=== PATIENT | male | born 1995 | race Caucasian/White ===

== ENCOUNTER 2019-03-27 16:41 | Emergency (ER) | payer OTHER ==
[2019-03-27 16:50] VITALS: BP 125/64; PULSE 76; TEMP 98.3; BMI 23.0
--- NOTE | 2019-03-27 17:23 | PDOC ---
History of Present Illness - General Chief Complaint: Laceration Stated Complaint: LACERATION Time Seen by Provider: 03/27/19 16:55 - History of Present Illness Initial Comments: 03/27/19 17:21 23-year-old male without comorbidities presents for evaluation of a laceration on his chin which occurred last night while at a club 03/27/19 17:21 There was no loss of consciousness post injury nausea vomiting or visual changes. Patient is here for a wound check 03/27/19 17:23 Tetanus shot is up-to-date Past History - Past Medical History Allergies/Adverse Reactions: Allergies Allergy/AdvReac Type Severity Reaction Status Date / Time No Known Allergies Allergy Verified 03/27/19 16:50 Home Medications: Ambulatory Orders NK [No Known Home Medication] 03/27/19 - Psycho Social/Smoking Cessation Hx Smoking History: Never smoked Have you smoked in the past 12 months: No Information on smoking cessation initiated: No Hx Alcohol Use: No Drug/Substance Use Hx: No Review of Systems - Review of Systems ABD/GI: No: Nausea, Vomiting *Physical Exam - Vital Signs Last Vital Signs Temp Pulse Resp BP Pulse Ox 98.3 F 76 18 125/64 100 03/27/19 16:47 03/27/19 16:47 03/27/19 16:47 03/27/19 16:47 03/27/19 16:47 - Physical Exam 03/27/19 17:22 GENERAL: The patient is awake, alert, and fully oriented, in no acute distress. HEAD: Normal there is a subcentimeter superficial laceration on the undersurface of the chin.. EYES: sclera anicteric, conjunctiva clear. ENT: Ears normal tympanic membranes normal oropharynx clear uvula midline NECK: Normal range of motion LUNGS: Breath sounds equal, clear to auscultation bilaterally. No wheezes, and no crackles. HEART: S1 and S2 without murmur, rub or gallop. ABDOMEN: Soft, nontender, normoactive bowel sounds. No guarding, no rebound. No masses. EXTREMITIES: Normal range of motion, no edema. No clubbing or cyanosis. No cords, erythema, or tenderness. NEUROLOGICAL: Cranial nerves II through XII grossly intact. Normal speech, normal gait. PSYCH: Normal mood, normal affect. SKIN: Warm, Dry, normal turgor, no rashes or lesions noted. Medical Decision Making - Medical Decision Making 03/27/19 17:22 The edges appear approximated. The wound was not manipulated. No indication of infection or drainage. Recommended the use of soap and water for wound care leaving the area open to air not applying any ointments follow-up in 2 to 3 days for wound check Discharge - Discharge Information Problems reviewed: Yes Clinical Impression/Diagnosis: Laceration of chin Condition: Stable Disposition: HOME - Admission No - Follow up/Referral Referrals: Montse Argueta MD [Primary Care Provider] - - Patient Discharge Instructions Additional Instructions: Return to the emergency room in 2 to 3 days for wound check. Follow-up with your primary care physician in 2 to 3 days as well. Do not apply any ointments to the area. Keep the wound clean and dry for the next 48 hours after 48 hours you may wash the area with soap and water. Do not apply any ointment such as bacitracin or Neosporin. - Post Discharge Activity
== END 2019-03-27 17:32 | disposition home or self-care (01) ==
LOC: JERFT 16:41
DX: S01.81XA Laceration without foreign body of other part of head, initial encounter (principal); W01.190A Fall on same level from slipping, tripping and stumbling with subsequent striking against furniture, initial encounter; Y93.89 Activity, other specified; Y92.59 Other trade areas as the place of occurrence of the external cause; Y99.8 Other external cause status
CPT/HCPCS: 99281-25